=== PATIENT | female | born 1975 | race Caucasian/White ===

== ENCOUNTER 2022-10-02 11:20 | Emergency (ER) | payer OTHER ==
[~2022-10-02] VITALS: Ht 167.6 cm; Wt 66.7 kg
[2022-10-02] MEDS ORDERED: ACETAMINOPHEN 325 MG TAB PO ONE (12:00)
[2022-10-02] MEDS ORDERED: ACETAMINOPHEN 325 MG TAB ONE (12:50)
[2022-10-02] MEDS ORDERED: AMOX TR-K CLV1 EAC2 PO (14:08)
[2022-10-02 15:48] VITALS: BP 113/75
[2022-10-02] MEDS ORDERED: CEFTRIAXONE 1 GM VIAL ONE (15:52)
[2022-10-02] MEDS ORDERED: SODIUM CHLORIDE 0.9% 100 ML ONE (15:52)
== END 2022-10-02 15:55 | disposition other institution (70) ==
LOC: FSED 11:24
DX: S02.32XA Fracture of orbital floor, left side, initial encounter for closed fracture (principal); S01.91XA Laceration without foreign body of unspecified part of head, initial encounter; I10 Essential (primary) hypertension; F41.9 Anxiety disorder, unspecified; F43.10 Post-traumatic stress disorder, unspecified; D64.9 Anemia, unspecified; F33.9 Major depressive disorder, recurrent, unspecified; F17.200 Nicotine dependence, unspecified, uncomplicated; Y00.XXXA Assault by blunt object, initial encounter; Y07.03 Male partner, perpetrator of maltreatment and neglect; Y92.009 Unspecified place in unspecified non-institutional (private) residence as the place of occurrence of the external cause
CPT/HCPCS: 70450; 70486; 72125; 99284; J0696; J7050